=== PATIENT | male | born 1990 | race Two or more races ===

== ENCOUNTER 2023-02-01 14:45 | Inpatient (IN) | payer OTHER, SELFPAY ==
[2023-02-01 15:02] VITALS: BP 110/69; PULSE 85; RESP 17; TEMP 36.8; O2SAT 96; BMI 35.6
[2023-02-01] MEDS: Acetaminophen 325 MG Tablet 650 MG PO ×2 (17:25→23:05)
[2023-02-01 19:55] VITALS: BP 109/67; PULSE 77; RESP 18; TEMP 36.7; O2SAT 98
[2023-02-01] MEDS: Amantadine 100 MG Capsule PO (20:35)
[2023-02-01] MEDS: Methocarbamol 750 MG Tablet PO (20:36)
[2023-02-01] MEDS: Propranolol 10 MG Tablet 20 MG PO (20:36)
[2023-02-01] MEDS: Senna/Docusate Sodium 1 Tablet 2 TABLET PO (20:36)
[2023-02-01] MEDS: Enoxaparin 30 MG/0.3 ML Syringe SC (20:38)
[2023-02-02 05:35] LABS: Absolute Lymphocyte Count 1.96 X10^3/uL (0.83-4.51); Basophil# 0.04 X10^3/uL; Basophil% 0.7 % (0-1); Eosinophil# 0.12 X10^3/uL; Eosinophils% 2.1 % (0-5); Hematocrit 38.3 % (40-54); Hemoglobin 13.1 g/dL (13.0-16.5); Lymphocyte # 1.96 X10^3/ul (0.83-4.51); Lymphocyte % 34.9 % (19-41); Mean Corp Hgb Conc 34.2 g/dL (32-36); Mean Corpuscular Hgb 30.6 pg (27.0-32.0); Mean Corpuscular Volume 89.5 fL (80-94); Mean Platelet Vol. 9.7 fl (6.2-12.0); Monocyte% 8.9 % (0-10); NRBC Flagged by Analyzer 0 % (0-5); Neutrophil # 2.97 X10^3/uL (2.7-7.7); Neutrophil % 52.9 % (47-70); Platelet Count 381 K/mm3 (150-450); RBC Distribution Width CV 12.5 % (11.6-14.6); RBC Distribution Width SD 39.4 fl (35.1-43.9); Red Blood Count 4.28 M/mm3 (4.6-6.2); White Blood Count 5.6 K/mm3 (4.4-11.0)
[2023-02-02] MEDS: Propranolol 10 MG Tablet 20 MG PO ×3 (05:50→22:44)
[2023-02-02] MEDS: Acetaminophen 325 MG Tablet 650 MG PO ×3 (05:50→22:44)
[2023-02-02 05:58] LABS: ALB/GLOB Ratio 0.8 RATIO (0.9-2.4); AST(SGOT) 28 U/L (15-37); Alanine Aminotransfer ALT/SGPT 98 U/L (16-61); Albumin, Serum 3.4 g/dL (3.2-5.0); Alkaline Phosphatase 95 U/L (45-117); Anion Gap 8 (5-15); BUN 22 mg/dL (7-18); BUN/Creat Ratio 19.3 RATIO (10-20); Calcium,Total 9.6 mg/dL (8.5-10.1); Chloride 102 mmol/L (98-107); Creatinine, Serum 1.14 mg/dL (0.70-1.30); EST Glomerular Filtration Rate 80 mL/min (>60); Est Glom Filt Rate - Afr Amer 96 mL/min (>60); Estimated Creatinine Clearance 91.67 ml/min; Glucose 94 mg/dL (74-106); Magnesium 2.4 mg/dL (1.6-2.6); Phosphorus 4.1 mg/dL (2.5-4.9); Potassium 4.1 mmol/L (3.5-5.1); Protein, Total 7.4 g/dL (6.4-8.2); Sodium Level 138 mmol/L (136-145)
[2023-02-02] MEDS: Amantadine 100 MG Capsule PO ×2 (08:34→22:44)
[2023-02-02] MEDS: Senna/Docusate Sodium 1 Tablet 2 TABLET PO ×2 (08:34→22:43)
[2023-02-02] MEDS: Aspirin 81 MG TAB.CHEW PO (08:34)
[2023-02-02] MEDS: Enoxaparin 30 MG/0.3 ML Syringe SC ×2 (08:34→22:43)
[2023-02-02 08:43] VITALS: BP 120/86; PULSE 76; RESP 15; TEMP 36.3; O2SAT 97
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
[2023-02-02 11:22] VITALS: O2SAT 97
[2023-02-02 13:59] LABS: Bacteria 0 SEEN /hpf (None Seen); Mucous, Urine 0 SEEN /hpf (<or=2+); Squamous Epithelial Cells - UA 0 SEEN /hpf (0-5); White Blood Cells 0 SEEN /hpf (0-5)
[2023-02-02 14:03] LABS: Color, Urine Yellow (Yellow); Glucose, Dipstick Normal (Normal); Ketone-Dipstick Negative (Negative); Leukocyte Esterase-Dipstick 25 /ul (Negative); Nitrite-Dipstick Negative (Negative); Occult Blood-Urine 250 /ul (Negative); Protein-Dipstick 30 mg/dl (Negative); Specific Gravity, Urine 1.025 (1.002-1.030); Urine Bilirubin Dipstick Negative (Negative); Urine Clarity Sl. Cloudy (Clear); Urine Urobilinogen Normal (Normal)
[2023-02-02 14:18] LABS: Red Blood Cells-Urine > 100 SEEN /hpf (0-5)
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
[2023-02-02 17:10] VITALS: BMI 32.2
[2023-02-02] MEDS: Magnesium Hydroxide 30 ML UDC PO (17:20)
[2023-02-02] MEDS: Methocarbamol 750 MG Tablet PO (18:25)
--- NOTE | 2023-02-02 18:32 | NURSING ---
Measured patients neck at 19 inches, also girlfriend stated pt does snore when sleeping.
[2023-02-02 22:42] VITALS: BP 120/57; PULSE 80; RESP 16; TEMP 36.4; O2SAT 97
[2023-02-03] MEDS: Acetaminophen 325 MG Tablet 650 MG PO ×4 (05:36→23:06)
[2023-02-03] MEDS: Propranolol 10 MG Tablet 20 MG PO ×3 (05:36→21:51)
[2023-02-03 05:39] VITALS: BMI 32.0
[2023-02-03 07:48] VITALS: BP 110/63; PULSE 81; RESP 16; TEMP 36.7; O2SAT 98
[2023-02-03] MEDS: Aspirin 81 MG TAB.CHEW PO (08:41)
[2023-02-03] MEDS: Senna/Docusate Sodium 1 Tablet 2 TABLET PO ×2 (08:41→21:52)
[2023-02-03] MEDS: Amantadine 100 MG Capsule PO ×2 (08:41→21:51)
[2023-02-03] MEDS: Enoxaparin 30 MG/0.3 ML Syringe SC ×2 (08:57→21:52)
[2023-02-03 20:02] VITALS: BP 108/61; PULSE 56; RESP 18; TEMP 36.6; O2SAT 95
[2023-02-03] MEDS: Methocarbamol 750 MG Tablet PO (21:51)
[2023-02-04] MEDS: Propranolol 10 MG Tablet 20 MG PO ×3 (06:23→20:52)
[2023-02-04] MEDS: Acetaminophen 325 MG Tablet 650 MG PO ×4 (06:24→23:08)
[2023-02-04 07:16] VITALS: BP 120/72; PULSE 81; RESP 15; TEMP 36.9; O2SAT 97
[2023-02-04] MEDS: Enoxaparin 30 MG/0.3 ML Syringe SC ×2 (09:48→20:54)
[2023-02-04] MEDS: Senna/Docusate Sodium 1 Tablet 2 TABLET PO ×2 (09:48→20:52)
[2023-02-04] MEDS: Aspirin 81 MG TAB.CHEW PO (09:48)
[2023-02-04] MEDS: Amantadine 100 MG Capsule PO ×2 (09:49→20:52)
[2023-02-04 20:29] VITALS: BP 104/49; PULSE 68; RESP 16; TEMP 36.7; O2SAT 99
[2023-02-05] MEDS: Acetaminophen 325 MG Tablet 650 MG PO ×4 (05:18→23:13)
[2023-02-05] MEDS: Propranolol 10 MG Tablet 20 MG PO ×3 (05:18→20:44)
[2023-02-05 06:32] VITALS: O2SAT 98
[2023-02-05 07:56] VITALS: BP 163/67; PULSE 81; RESP 17; TEMP 36.5; O2SAT 97
[2023-02-05] MEDS: Enoxaparin 30 MG/0.3 ML Syringe SC ×2 (08:35→20:44)
[2023-02-05] MEDS: Senna/Docusate Sodium 1 Tablet 2 TABLET PO ×2 (08:35→20:45)
[2023-02-05] MEDS: Amantadine 100 MG Capsule PO ×2 (08:35→20:45)
[2023-02-05] MEDS: Magnesium Hydroxide 30 ML UDC PO (08:35)
[2023-02-05] MEDS: Aspirin 81 MG TAB.CHEW PO (08:35)
[2023-02-05 19:56] VITALS: BP 117/71; PULSE 86; RESP 18; TEMP 36.9; O2SAT 97
--- NOTE | 2023-02-05 20:14 | NURSING ---
Pt took shower this HS with assistance, tolerated well still unsteady at times.
[2023-02-05 20:25] VITALS: O2SAT 97
[2023-02-05 22:21] VITALS: BMI 31.9
[2023-02-06] MEDS: Acetaminophen 325 MG Tablet 650 MG PO ×3 (05:17→18:46)
[2023-02-06] MEDS: Propranolol 10 MG Tablet 20 MG PO ×3 (05:17→21:23)
[2023-02-06 07:28] VITALS: BP 139/85; PULSE 65; RESP 16; TEMP 35.8; O2SAT 98
[2023-02-06] MEDS: Senna/Docusate Sodium 1 Tablet 2 TABLET PO ×2 (09:58→21:22)
[2023-02-06] MEDS: Enoxaparin 30 MG/0.3 ML Syringe SC ×2 (09:58→21:21)
[2023-02-06] MEDS: Aspirin 81 MG TAB.CHEW PO (09:58)
[2023-02-06] MEDS: Amantadine 100 MG Capsule PO ×2 (09:58→21:22)
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
[2023-02-06 12:51] LABS: Anion Gap 6 (5-15); BUN 14 mg/dL (7-18); BUN/Creat Ratio 12.3 RATIO (10-20); Calcium,Total 9.7 mg/dL (8.5-10.1); Chloride 103 mmol/L (98-107); Creatinine, Serum 1.14 mg/dL (0.70-1.30); EST Glomerular Filtration Rate 80 mL/min (>60); Est Glom Filt Rate - Afr Amer 96 mL/min (>60); Estimated Creatinine Clearance 91.67 ml/min; Glucose 87 mg/dL (74-106); Potassium 4.2 mmol/L (3.5-5.1); Sodium Level 134 mmol/L (136-145)
--- NOTE | 2023-02-06 15:04 | CASEMGMT ---
Social Work IDT met with patient, MIL and SO via conference call for Team meeting. Discussed patient's progress in PT/OT/ST/SN. Pt expressing wish to DC home tomorrow. Family in agreement. IDT agreeable but recommending continued outpatient ST up to 5 days/wk. Family/pt agreeable. Inquired about OP facility preference. SO agreeable to [facility]. IDT recommending shower chair, grab bars and [facility] resources. Educated to SO paying OOP for shower chair. SW provided resources for other requests. Family to transport. Faxed referral to [facility]. Plan: DC 02/07 home with family with 24/04 supervision, [facility] BRENDA Pena
[2023-02-06 19:31] VITALS: BP 112/70; PULSE 68; RESP 17; TEMP 36.8; O2SAT 97
[2023-02-06] MEDS: Mirtazapine 15 MG Tablet PO (21:23)
[2023-02-07] MEDS: Acetaminophen 325 MG Tablet 650 MG PO ×3 (00:14→12:12)
[2023-02-07] MEDS: Propranolol 10 MG Tablet 20 MG PO (06:39)
[2023-02-07 08:51] VITALS: BP 126/95; PULSE 93; RESP 14; TEMP 36.9; O2SAT 100
[2023-02-07] MEDS: Enoxaparin 30 MG/0.3 ML Syringe SC (09:30)
[2023-02-07] MEDS: Aspirin 81 MG TAB.CHEW PO (09:31)
[2023-02-07] MEDS: Senna/Docusate Sodium 1 Tablet 2 TABLET PO (09:31)
[2023-02-07] MEDS: Amantadine 100 MG Capsule PO (09:31)
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
[2023-02-07 11:00] VITALS: BP 126/85; PULSE 93; RESP 14; TEMP 36.9; O2SAT 100
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
--- NOTE | 2023-02-07 13:35 | NURSING ---
discharged home with family. discharge instructions, medications and appointments reviewed with pt and family. denies questions or concerns
== END 2023-02-07 13:36 | disposition home or self-care (01) | DRG 561 ==
PROVIDERS: Admitting Provider Internal Medicine; Referring Provider Internal Medicine; Visit Provider Internal Medicine
DX: S02.19XD Other fracture of base of skull, subsequent encounter for fracture with routine healing (principal); E66.9 Obesity, unspecified; S03.00XD Dislocation of jaw, unspecified side, subsequent encounter; S42.024D Nondisplaced fracture of shaft of right clavicle, subsequent encounter for fracture with routine healing; S27.322D Contusion of lung, bilateral, subsequent encounter; S27.0XXD Traumatic pneumothorax, subsequent encounter; S06.4X0D Epidural hemorrhage without loss of consciousness, subsequent encounter; S06.5XAD Traumatic subdural hemorrhage with loss of consciousness status unknown, subsequent encounter; Z87.891 Personal history of nicotine dependence; Z68.35 Body mass index [BMI] 35.0-35.9, adult; V29.99XD Rider (driver) (passenger) of other motorcycle injured in unspecified traffic accident, subsequent encounter; S06.1X9D Traumatic cerebral edema with loss of consciousness of unspecified duration, subsequent encounter; S22.31XD Fracture of one rib, right side, subsequent encounter for fracture with routine healing; S06.6X9D Traumatic subarachnoid hemorrhage with loss of consciousness of unspecified duration, subsequent encounter
CPT/HCPCS: 36415; 80048; 80053; 81001; 83735; 84100; 85025; 92507; 92523; 92610; 94668; 97110; 97112; 97116; 97129; 97130; 97162; 97166; 97530; 97535; 97802

== ENCOUNTER 2023-04-26 10:00 | Outpatient (RCR) | payer OTHER, SELFPAY ==
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
--- NOTE | 2023-06-01 10:21 | HP.SP.DC ---
ST Discharge Summary Discharged: Discharge: Pt was seen for initial speech/language/cognitive evaluation at [facility] on 02/13/23 secondary to dx of TBI. Pt attended 2 additional sessions to complete further testing, which indicated a cognitive impairment. Per discussion with pt and family, pt is able to complete all ADL's and has returned to prior level of functioning so therapy is not warranted at this time. Pt discharged from speech therapy caseload on this date, 06/01/23, at Pt?s request. Thank you for allowing me to participate the care of your Pt. Will reevaluate at Pt?s request following script from physician.
== END 2023-04-26 19:00 | disposition home or self-care (01) ==
LOC: SP 10:00
PROVIDERS: Referring Provider Internal Medicine; Visit Provider Internal Medicine
DX: S06.9XAD Unspecified intracranial injury with loss of consciousness status unknown, subsequent encounter (principal); V89.2XXD Person injured in unspecified motor-vehicle accident, traffic, subsequent encounter
CPT/HCPCS: 92507